=== PATIENT | male | born 2000 | race Caucasian/White ===

== ENCOUNTER 2025-04-08 18:41 | Emergency (ER) | payer OTHER ==
[2025-04-08 18:48] VITALS: TEMP 97.3; BMI 25.8
[2025-04-08] MEDS ORDERED: diazePAM 5 MG TABLET ONE (19:41)
[2025-04-08] MEDS ORDERED: ACETAMINOPHEN INJECTION 100 ML ONE (19:42)
[2025-04-08 19:43] LABS: ABSOLUTE IMMATURE GRANULOCYTES 0.06 x10^3/uL (0.0-0.031); BASOPHILS # 0.11 x10^3/uL (0.01-0.08); EOSINOPHIL % 3.7 % (0.8-7.0); EOSINOPHILS # 0.43 x10^3/uL (0.04-0.54); HEMATOCRIT 47.5 % (40.1-51.0); HEMOGLOBIN 16.9 g/dL (13.7-17.5); MCHC 35.6 g/dl (32.3-36.5); MEAN CELL VOLUME 88.3 fl (79.0-92.2); MONOCYTE # 1.02 x10^3/uL (0.30-0.82); MONOCYTE % 8.8 % (5.3-12.2); PLATELET COUNT 395 x10^3/uL (163-337); RDW 12.8 % (11.9-15.3)
[2025-04-08] MEDS: diazePAM 5 MG TABLET PO ONE (19:48)
[2025-04-08] MEDS: ACETAMINOPHEN 1000 MG/100 ML BAG IVPB ONE (19:48)
[2025-04-08 19:53] LABS: ACTIVATED PTT 29.8 SECONDS (25.2-36.5)
[2025-04-08 20:22] LABS: POTASSIUM 4.3 mmol/L (3.5-5.1)
[2025-04-08 20:24] LABS: CALCIUM 10.4 mg/dL (8.5-10.1)
[2025-04-08 20:25] LABS: ALBUMIN 4.4 g/dl (3.4-5.0); BLOOD UREA NITROGEN 12.1 mg/dL (7-18); MAGNESIUM 1.9 mg/dL (1.8-2.4)
[2025-04-08 20:28] LABS: CREATININE 1.2 mg/dL (0.55-1.3)
[2025-04-08 20:30] LABS: BILIRUBIN,TOTAL 1.2 mg/dL (0.2-1); TOT PROT 8.2 g/dl (6.4-8.2)
[2025-04-08 23:18] VITALS: BP 125/90; PULSE 74; RESP 16
== END 2025-04-08 23:18 | disposition home or self-care (01) ==
LOC: JER 18:41
PROC: 3E033NZ Introduction of Analgesics, Hypnotics, Sedatives into Peripheral Vein, Percutaneous Approach (ICD-10-PCS; principal; 2025-04-08)
DX: M54.6 Pain in thoracic spine (principal); M79.18 Myalgia, other site; R55 Syncope and collapse; R06.02 Shortness of breath; W21.02XA Struck by soccer ball, initial encounter; Y93.66 Activity, soccer
CPT/HCPCS: 36415; 71045-TC-FY; 71260-TC; 74177-TC; 76604; 76705-TC; 80053; 83735; 84484; 85025; 85610; 85730; 86850; 86900; 86901; 93005; 93010; 93308; 99285-25; J0131; Q9967